=== PATIENT | female | born 1955 | race Hispanic/Latino ===

== ENCOUNTER 2019-12-04 06:50 | Outpatient (CLI) | payer BC ==
--- NOTE | 2019-12-04 08:26 | ULT ---
ULTRASOUND ABDOMEN COMPLETE: DATE: 12/04/2019. HISTORY: A 64-year-old female with abdominal pain. FINDINGS: Liver: Normal. Gallbladder: Surgically absent. Common duct: Dilated to 8 mm. This could be due to status post cholecystectomy, and does not necessa rily imply biliary obstruction. Spleen: No splenomegaly. Pancreas: Normal sonographic appearance. Kidneys: No hydronephrosis. Abdominal aorta: No aneurysm. Inferior vena cava: Patent where visualized. IMPRESSION: 1. Status post cholecystectomy. 2. Common duct caliber 8 mm. SUSANA Rodriguez POS: [facility]
--- NOTE | 2019-12-04 10:28 | RAD ---
LEFT FOOT 3 VIEWS: Date: 12/04/2019 COMPARISON: None. FINDINGS: No acute displaced fracture or malalignment. Mild metatarsus primus varus and hallux valgus. Soft tis jeremy swelling along the great toe metatarsophalangeal joint. Small plantar calcaneal spur. IMPRESSION: Chronic findings. No acute osseous abnormality. POS: HOME
== END 2019-12-04 06:51 | disposition home or self-care (01) ==
LOC: BICULT 06:50
PROVIDERS: ATTEND Family Medicine
DX: K21.9 Gastro-esophageal reflux disease without esophagitis (principal); K29.70 Gastritis, unspecified, without bleeding; M79.672 Pain in left foot; R10.9 Unspecified abdominal pain; Z90.49 Acquired absence of other specified parts of digestive tract
CPT/HCPCS: 93975

== ENCOUNTER 2022-02-14 14:28 | Outpatient (CLI) | payer BC | END 2022-02-14 14:29 | disposition home or self-care (01) | LOC: ULT 14:28 | PROVIDERS: ATTEND Family Medicine | DX: R60.0 Localized edema (principal); R06.09 Other forms of dyspnea; I08.3 Combined rheumatic disorders of mitral, aortic and tricuspid valves | CPT/HCPCS: 93306 ==

== ENCOUNTER 2022-06-10 13:35 | Outpatient (CLI) | payer MEDICARE | END 2022-06-10 13:36 | disposition home or self-care (01) | LOC: ULT 13:35 | PROVIDERS: ATTEND Family Medicine | DX: R25.2 Cramp and spasm (principal); I70.203 Unspecified atherosclerosis of native arteries of extremities, bilateral legs | CPT/HCPCS: 93923; 93970 ==

== ENCOUNTER 2022-06-24 11:17 | Outpatient (CLI) | payer MEDICARE | END 2022-06-24 11:18 | disposition home or self-care (01) | LOC: BICMAMMO 11:17 | PROVIDERS: ATTEND Family Medicine | DX: Z12.31 Encounter for screening mammogram for malignant neoplasm of breast (principal); R92.1 Mammographic calcification found on diagnostic imaging of breast; Z91.89 Other specified personal risk factors, not elsewhere classified | CPT/HCPCS: 77063; 77067 ==

== ENCOUNTER 2022-11-11 08:02 | Outpatient (CLI) | payer MEDICARE ==
[2022-11-11] MEDS ORDERED: Iopamidol-370 76% 500 ML MDV (1 ML CHARGE) ONE (11:02)
== END 2022-11-11 08:03 | disposition home or self-care (01) ==
LOC: BICCT 08:02
PROVIDERS: ATTEND Physician Assistant Medical
DX: K21.9 Gastro-esophageal reflux disease without esophagitis (principal); R10.32 Left lower quadrant pain; R01.1 Cardiac murmur, unspecified; R19.7 Diarrhea, unspecified
CPT/HCPCS: 74177; 82565

== ENCOUNTER 2023-05-11 09:54 | Outpatient (CLI) | payer MEDICARE | END 2023-05-11 09:55 | disposition home or self-care (01) | LOC: RAD 09:54 | PROVIDERS: ATTEND Family Medicine | DX: R22.31 Localized swelling, mass and lump, right upper limb (principal); M19.041 Primary osteoarthritis, right hand ==

== ENCOUNTER 2023-08-15 12:06 | Outpatient (CLI) | payer MEDICARE | END 2023-08-15 12:07 | disposition home or self-care (01) | LOC: BICMAMMO 12:06 | PROVIDERS: ATTEND Family Medicine | DX: Z12.31 Encounter for screening mammogram for malignant neoplasm of breast (principal) | CPT/HCPCS: 77063; 77067 ==

== ENCOUNTER 2023-12-25 09:59 | Outpatient (CLI) | payer MEDICARE ==
[~2023-12-25 09:59] MED LIST: Iopamidol 370 76% 100 ML VIAL ONE
== END 2023-12-25 10:00 | disposition home or self-care (01) ==
LOC: BICCT 09:59
PROVIDERS: ATTEND Physician Assistant Medical
DX: K21.9 Gastro-esophageal reflux disease without esophagitis (principal); R19.7 Diarrhea, unspecified; R10.32 Left lower quadrant pain; R10.13 Epigastric pain
CPT/HCPCS: 74177; 82565; Q9967